=== PATIENT | female | born 2000 | race Caucasian/White ===

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

== ENCOUNTER 2020-05-28 18:16 | Outpatient (REF) | payer MEDICAID, SELFPAY ==
[2020-05-31 18:27] LABS: Patient Race White; SARS-CoV-2 RNA Undetected (Undetected); SARS-CoV-2 Specimen Source Nasal
== END 2020-05-28 18:36 ==
LOC: NCHCN 18:16
PROVIDERS: PCP Family Medicine; Visit Provider Nurse Practitioner Family
DX: Z20.828 Contact with and (suspected) exposure to other viral communicable diseases (principal)
CPT/HCPCS: U0003

== ENCOUNTER 2020-06-04 00:51 | Outpatient (CLI) | payer MEDICAID, SELFPAY ==
--- NOTE | 2020-06-04 07:30 | DI.US_ITS ---
EXAM: US PELVIS TRANSVAGINAL CLINICAL HISTORY: Pelvic pain and abn bleeding on OCPs,CRAMPING,R10.2 TECHNIQUE: Ultrasound performed using standard protocol. COMPARISON: No exams were available for comparison FINDINGS: Pelvic ultrasound was performed transabdominally and transvaginally. Uterus measures 74 x 33 x 42 mi llimeters, endometrial stripe is 5 millimeters in thickness and appears homogeneous. There is small quantity of free fluid in the right adnexal region, possibly physiologic. Right ovary measures 27 x 13 x 14 millimeters. Left ovary measures 28 x 20 x 12 millimeters. Normal vascular flow noted to both ovaries. No ovarian mass. Limited scanning of the kidneys is unremarkable. IMPRESSION: Negative pelvic ultrasound. DATA REPOSITORY:
== END 2020-06-04 01:11 ==
PROVIDERS: PCP Family Medicine; Visit Provider Nurse Practitioner Family
DX: R10.2 Pelvic and perineal pain (principal); N93.9 Abnormal uterine and vaginal bleeding, unspecified
CPT/HCPCS: 76830; 76856

== ENCOUNTER 2021-05-13 14:21 | Outpatient (REF) | payer MEDICAID, SELFPAY ==
[2021-05-13 20:10] LABS: ESR 2 mm/hr (0-20)
[2021-05-13 20:27] LABS: C-Reactive Protein 0.29 mg/dL (0.0-0.3); Uric Acid 3.5 mg/dL (2.6-6.0)
== END 2021-05-13 14:22 | disposition home or self-care (01) ==
LOC: NCHCN 14:21
PROVIDERS: PCP Family Medicine; Visit Provider Family Medicine
DX: M77.42 Metatarsalgia, left foot (principal)
CPT/HCPCS: 85652; 84550; 86140

== ENCOUNTER 2021-05-29 02:16 | Outpatient (CLI) | payer MEDICAID, SELFPAY ==
[2021-05-29 15:11] LABS: ALT 24 U/L (14-59); AST 17 U/L (15-37); Triglyceride 76 mg/dL (<150)
== END 2021-05-29 02:17 | disposition home or self-care (01) ==
LOC: LBO 02:16
PROVIDERS: PCP Family Medicine; Visit Provider Psychiatry & Neurology Neurology
DX: Z79.899 Other long term (current) drug therapy (principal)
CPT/HCPCS: 36415; 84450; 84460; 84478

== ENCOUNTER 2021-07-10 03:31 | Outpatient (CLI) | payer MEDICAID, SELFPAY ==
[2021-07-10 15:40] LABS: ALT 22 U/L (14-59); AST 20 U/L (15-37); Triglyceride 84 mg/dL (<150)
== END 2021-07-10 03:32 | disposition home or self-care (01) ==
LOC: LBO 03:31
PROVIDERS: PCP Family Medicine; Visit Provider Dermatology
DX: L70.0 Acne vulgaris (principal); Z79.899 Other long term (current) drug therapy
CPT/HCPCS: 36415; 84450; 84460; 84478

== ENCOUNTER 2022-11-04 14:31 | Outpatient (REF) | payer MEDICAID, SELFPAY ==
--- NOTE | 2022-11-04 13:20 | PAPFT_PTH ---
PATIENT: Elly Pitts LOC: [facility] U#:[id number] AGE/SX: 21/F ROOM: RE11/04/[address]: Cherry Merida DO : 2000 BED: DIS: 11/04/2022 SPEC #: [id number] RECD: 11/04/22 18:36 STATUS: [facility] REQ #: [id number] IKE: 11/04/22 13:[address]: Cherry Merida DEPT: [facility] Cytology RECD BY: Meagan Pace ENTERED: 11/04/22 18:37 SP TYPE: PAPFT OTHR DR: Tiki Monsalve Tissues: 1 - CX/ENDOCX FOR PAP SMEARS Procedures: PAP THIN PREP/UVM Screening Comments: [id number] (CHLAMYDIA/GC)
[2022-11-05 14:04] LABS: Chlamydia Result Negative (Negative); GC Result Negative (Negative)
== END 2022-11-04 14:32 | disposition home or self-care (01) ==
LOC: LBN 14:31
PROVIDERS: PCP Family Medicine; Visit Provider Obstetrics & Gynecology
DX: Z11.3 Encounter for screening for infections with a predominantly sexual mode of transmission (principal); Z12.4 Encounter for screening for malignant neoplasm of cervix
CPT/HCPCS: 87491; 87591; 88142

== ENCOUNTER 2022-11-05 14:22 | Outpatient (REF) | payer MEDICAID, SELFPAY ==
[2022-11-05 18:31] LABS: HCT 39.2 % (36.0-46.0); HGB 13.5 g/dL (11.2-15.7); MCH 30.2 pg (27.0-33.0); MCHC 34.4 % (32.0-36.0); MCV 88 fL (80-95); MPV 12.2 fL (8.0-11.0); Platelet Count 245 10^3/uL (130-400); RBC 4.47 10^6/uL (3.93-5.22); RDW 12.1 % (11.7-14.6); RDW-SD 39.1 fL; WBC 5.16 10^3/uL (4.4-10.8)
[2022-11-08 10:22] LABS: IgA 295 mg/dL (85-499)
[2022-11-08 20:56] LABS: Tissue Transglutaminase Ab IgA <1.2 U/mL
== END 2022-11-05 14:23 | disposition home or self-care (01) ==
LOC: NCHCN 14:22
PROVIDERS: PCP Family Medicine; Visit Provider Family Medicine
DX: R19.7 Diarrhea, unspecified (principal)
CPT/HCPCS: 82784; 85027; 83516

== ENCOUNTER 2022-11-08 12:00 | Outpatient (REF) | payer MEDICAID, SELFPAY ==
[2022-11-12 17:05] LABS: Calprotectin <50.0 mcg/g
== END 2022-11-08 12:01 | disposition home or self-care (01) ==
LOC: NCHCN 12:00
PROVIDERS: PCP Family Medicine; Visit Provider Family Medicine
DX: R19.7 Diarrhea, unspecified (principal)
CPT/HCPCS: 87329; 83993

== ENCOUNTER 2023-01-31 10:45 | Emergency (ER) | payer MEDICAID, SELFPAY ==
[2023-01-31 10:55] VITALS: BP 127/75; PULSE 87; RESP 16; TEMP 37.1; O2SAT 98
--- NOTE | 2023-01-31 11:15 | DI.CT_ITS ---
Exam(s) CT ABDOMEN PELVIS W EXAM: CT ABDOMEN PELVIS W CLINICAL HISTORY: RLQ pain TECHNIQUE: Imaging Protocol: Axial computed tomography images with coronal and sagittal reformatted images were created and reviewed CONTRAST MATERIAL: Intravenous: Omnipaque 350 Contrast volume:78 mL Oral: No COMPARISON: US US PELVIS TRANSVAGINAL from 06/04/2020 FINDINGS: ABDOMEN: Lung Bases: Normal where visualized. Liver: Normal density. No measurable mass. Portal, Superior Mesenteric, and Splenic Veins: Unremarkable. Gallbladder and Biliary Tract: No radiodense calculus or dilation. Pancreas: Normal density, no abnormal calcifications or inflammatory process. Spleen: Normal. Adrenals: No masses seen. Kidneys: Normal size, contour and axis. No radiodense stones or obstructive uropathy. There is a 7 mm cyst in the right kidney. Abdominal Aorta: Abdominal portion non-dilated. Bowel: No obstruction or bowel wall thickening. The appendix is not distended measuring 4 point 9 mm maximally. There is air seen throughout the appendix with some fluid and high density material. No Leti appendiceal inflammation is seen. Peritoneal Cavity: There is a small amount of fluid seen in the cul-de-sac. No free air. Lymph Nodes: Within normal limits. Bones: Within normal limits for the patient's age. Soft Tissues: Unremarkable. PELVIS: Bladder: Symmetric distention, no gross wall thickening. Reproductive Organs: Unremarkable as visualized. Lymph Nodes: Within normal limits. Bones: Within normal limits for the patient's age. IMPRESSION: 1. The appendix has a normal appearance in size. No Leti appendiceal inflammation is seen. No evidenc e at this time to suggest acute appendicitis. Follow-up as clinically appropriate. This may include a follow-up CT scan of the abdomen and pelvis. 2. The gallbladder is unremarkable. No biliary ductal dilatation. If there is concern for gallbladder pathology, abdominal ultrasound may be obtained. 3. Findings were discussed with Jaja Perez at 12:52 p.m. on 01/31/2023. RADIATION DOSE DELIVERED: 533.72mGy.cm Total DLP DATA REPOSITORY: All CT scans at this facility are submitted to the National Radiology Data Registry (NRDR) Dose Index Registry (DIR) with the [employer] (ACR). RADIATION OPTIMIZATION: All CT scans at this facility use at least one of these dose optimization te chniques: automated exposure control; mA and/or kV adjustment per patient size (includes targeted exa ms where dose is matched to clinical indication); or iterative reconstruction.
--- NOTE | 2023-01-31 11:19 | ED.GENADUL_ITS ---
Discharge Plan Disposition Patient Disposition: Home Condition: Good Discharge Details Clinical Impression: Abdominal pain Primary Care Provider: Tiki Monsalve ED Provider: Jaja Perez Home Meds and New Rx's Prescriptions: New ondansetron 4 mg tablet,disintegrating 4 mg PO TID PRN (Reason: nausea and vomiting) Qty: 10 0RF Continued norgestimate-ethinyl estradiol [Sprintec (28)] 0.25-35 mg-mcg tablet 1 tab PO DAILY Qty: 84 0RF Patient Comments: on another pill Rx Instructions: take one pill daily (DME) Aerochamber MV Spacer See Rx Instructions .Route Qty: 1 0RF Rx Instructions: As directed norethindrone ac-eth estradiol [Junel .01/25 (21)] 1.5-30 mg-mcg tablet 1 tab PO DAILY Qty: 63 4RF Rx Instructions: Take in a continuous fashion. No placebo No Action ibuprofen 200 mg tablet 800 mg PO Q6H PRN acetaminophen [Tylenol Extra Strength] 500 mg tablet 1,000 mg PO Q6H PRN ciprofloxacin HCl 500 mg tablet 500 mg PO BID Qty: 14 0RF Rx Instructions: Take 1 tablet by mouth in the morning, and 1 tablet by mouth in the evening. Discharge Instructions Instructions: Abdominal Pain (ED) Additional Instructions: As we discussed, your imaging and labs are reassuring here today. This may be viral in nature. Please encourage hydration. You may use the Zofran as prescribed to help with any recurrent nausea or vomiting. Please keep your upcoming appoint with your primary care. As we discussed, this could also be gynecologic, you have declined a gynecologic exam here today but I encourage you to discuss this further with your primary care this week or make an appointment with women's wellness if you feel more comfortable. If you develop fever/chills, increased pain, inability stay hydrated or other new/worsening symptom please seek care urgently once again. Referrals: Tiki Monsalve MD [Primary Care Provider] - Discharge Data Discharge Date/Time-TO BE ENTERED AT DEPARTURE: 01/31/23 14:23 Medical Decision Making Patient is a pleasant 22-year-old female, accompanied by her mother, with chief complaint of right-sided abdominal pain. She reports this began last night about 20 minutes after eating a slice of pizza. She has not had pain like this historically. She endorses some nausea but denies any vomiting. Denies any change in bowel habits. Normal bowel movement this morning. Pain does not wrap around to her back. She denies any change in urinary habits, no dysuria or increased frequency. Denies any vaginal discharge. Patient reports that she is on control and does not believe that she is . She is sexually active. No previous abdominal surgeries. Denies any fevers or chills. On exam, patient appears nontoxic. Appears to be resting slightly anxious and uncomfortable. Hemodynamically stable. Exam of her abdomen reveals hypoactive bowel sounds. No guarding. She has pain in the right upper quadrant and does have a positive Blum sign. She also has pain in the right lower quadrant and palpation on the left side does produce some pain over McBurney's point. Pain is elicited McBurney's point but no guarding. Concern for potential appendicitis versus cholecystitis. The abrupt onset after eating pizza as well as the pain in the right upper quadrant certainly has been pointing that way but patient also has another isolated area of pain in the right lower quadrant over McBurney's point. Plan to move forward with CT imaging. She is not having any pain in the pelvis and no vaginal discharge or complaints I have lower suspicion for something like ovarian torsion. She is not describing a sudden onset rather this buildup of discomfort that began initially as a cramping. However, if I am unable to find his we will consider pelvic exam. Will obtain labs. Will obtain UPT. We will treat the patient's nausea and discomfort. UPT negative. Contacted by the radiologist who advised no acute abnormalities noted. In particular, we discussed the appendix, gallbladder and ovaries. Labs are reassuring with no leukocytosis. Stable H&H. No significant abnormality on CMP. Urinalysis appears contaminated. Trace ketones. There is a small amount of leukocyte esterase but again patient's not having any symptoms and it was contaminated. Patient I did discuss these results and I did recommend a vaginal exam and patient declined. She does see women's wellness and prefer to follow-up with them if needed. She again states she not having any discharge or vaginal complaints. She is not having any lower pelvic pain. She also has an appointment with her primary care on Tuesday already scheduled. Return precautions were discussed. We will continue with the Zofran as needed for any recurrent nausea. Mom is also quesitoning endometriosis, they will dsicuss further with women's wellness. All of her questions and concerns were addressed and she is in agreement this plan. Mom is also questioning if this potentially could be associated with HPI General Date/Time Provider Initiated Documentation: 01/31/23 11:19 . Limitations to Documentation: no limitations . Information obtained by: patient, family (mom) and RN notes reviewed . History of Present Illness 22 year old F presents to the emergency department with the chief complaint of right sided abdominal pain, described as severe, with intensity rated at 8. Quality is described as aching, and is localized to the abdomen. Patient reports no radiation. Patient started experiencing this day(s) and it has been constant. No relieving factors improve symptom(s), Eating worsens symptoms (came on after eating pizza) . Patient notes loss of appetite, malaise and nausea/vomiting; denies chest pain, diaphoresis, fever/chills and shortness of breath. Patient did receive the following treatments prior to arrival, none Related Data Home Medications Medication Instructions Recorded Confirmed inhalational spacing device #1 ea 08/03/22 02/02/23 (Aerochamber MV spacer) norethindrone acetate 1.5 1 tab PO DAILY #63 tabs 11/04/22 02/02/23 mg-ethinyl estradiol 30 mcg tablet (Junel) ondansetron 4 mg disintegrating 4 mg PO TID PRN nausea and 01/31/23 02/02/23 tablet vomiting #10 tabs acetaminophen 500 mg tablet 1,000 mg PO Q6H PRN 02/02/23 02/02/23 (Tylenol Extra Strength) ciprofloxacin HCl 500 mg tablet 500 mg PO BID #14 tabs 02/02/23 02/02/23 ibuprofen 200 mg tablet 800 mg PO Q6H PRN 02/02/23 02/02/23 Previous Rx's Medication Instructions Recorded inhalational spacing device #1 ea 08/03/22 (Aerochamber MV spacer) norethindrone acetate 1.5 1 tab PO DAILY #63 tabs 11/04/22 mg-ethinyl estradiol 30 mcg tablet (Junel) ondansetron 4 mg disintegrating 4 mg PO TID PRN nausea and 01/31/23 tablet vomiting #10 tabs ciprofloxacin HCl 500 mg tablet 500 mg PO BID #14 tabs 02/02/23 Allergies Allergy/AdvReac Type Severity Reaction Status Date / Time No Known Allergies Allergy Verified 02/02/23 12:50 General Stated Complaint: Abd Prob CLAU: 3 Review of Systems Constitutional Constitutional: Reports as per HPI, Denies chills, Denies fever(s) and Denies headache(s) ENT Ears, Nose, Mouth, and Throat: Denies headache(s) Cardiovascular Cardiovascular: Reports as per HPI, Denies chest pain and Denies dyspnea Respiratory Respiratory: Reports as per HPI, Denies cough and Denies dyspnea Gastrointestinal Gastrointestinal: Reports as per HPI Musculoskeletal Musculoskeletal: Reports as per HPI and Denies back pain Integumentary/Breasts Skin/Breast: Reports as per HPI and Denies rash Neurologic Neurologic: Reports as per HPI and Denies headache(s) PFSH All Active Problems Pyelonephritis (Acute) Abdominal pain, right lower quadrant (Acute) Endometriosis (Chronic) Menometrorrhagia (Acute) Depression (Chronic) Shoulder pain, left (Acute) Metatarsalgia, left foot (Acute) Chronic diarrhea (Acute) Abdominal pain (Acute) Cyst of right upper eyelid (Acute 11/05/16) Colitis (Acute) hospitalized x 2 days Contraception (Acute 06/10/16) Medical History Acne Cyst of right upper eyelid Surgical History Cyst removal R UPPER EYE LID Family History Mother Asthma Father Anxiety Depression Grandparent Essential hypertension MGM & PGM Depression Heart disease Hyperlipidemia Hypothyroidism MGM Neoplasm PGM- lung CA Subdural hemorrhage MGM Thrombocytopenia MGF Uveitis MGF- eye surgery young age Sister Anxiety Depression Social History Smoking/Tobacco Use Status: Never Smoking risk assessment performed?: Yes Alcohol Intake: current Substance use type: does not use Additional Social history: lives w/ mother older sister in area Female Reproductive History Menstrual control method: pills History History 0 Para Hx # Term Pregnancies Multiple births Hx # Pregnancies Ectopic pregnancies AB induced Hx Number of Living Children AB spontaneous Exam Const General: cooperative, healthy appearing, comfortable, no acute distress and well developed Nutritional Appearance: average body habitus and well nourished Orientation: alert and awake [facility] Head: normal to inspection Mouth: moist mucous membranes Resp Effort & Inspection: normal respiratory effort, able to speak in complete sentences and no respiratory distress Auscultation: clear to auscultation bilaterally, no rales, no rhonchi and no wheezes Cardio Rate: regular rate Rhythm: regular rhythm Heart Sounds: S1 normal and S2 normal GI Inspection: normal to inspection Palpation: soft, no hepatosplenomegaly, no hernias, no masses, not rigid, tender in the RLQ, in the RUQ, at McBurney's point and Blum's sign positive; not periumbilically, psoas sign negative and with no rebound tenderness and No ascites Percussion: normal to percussion Back/Spine/Pelvis Back: no CVA tenderness Skin General skin exam: no rashes or lesions noted Trauma: no lacerations or abrasions Neuro General: patient alert and patient awake Cognition: normal cognition Speech: speech normal Gait: normal gait Psych Appearance: grossly normal and well kempt Mental Status: mental status grossly normal Speech and Movement: speech and movement normal Course Vital Signs Vital signs: Vital Signs Temperature 37.1 C 01/31/23 10:55 Pulse 87 01/31/23 10:55 Respiratory Rate 16 01/31/23 10:55 Blood Pressure 127/75 01/31/23 10:55 Pulse Oximetry 98 01/31/23 10:55 Temperature 37.1 C 01/31/23 10:55 Temperature Source Skin 01/31/23 10:55 Pulse 87 01/31/23 10:55 Respiratory Rate 16 01/31/23 10:55 Blood Pressure 127/75 01/31/23 10:55 Blood Pressure Position Sitting 01/31/23 10:55 Pulse Oximetry 98 01/31/23 10:55 Oxygen Delivery Method Room Air 01/31/23 10:55 Oxygen Flow Rate 0 01/31/23 10:55 Pain Level 8 01/31/23 10:55
[2023-01-31 11:32] LABS: Abs Immature Grans 0.03 10^3/uL (0.0-0.06); Absolute Basophil Count 0.03 10^3/uL (0.0-0.2); Absolute Eosinophil Count 0.02 10^3/uL (0.0-0.7); Absolute Lymphocyte Count 1.08 10^3/uL (1.2-3.4); Absolute Monocyte Count 0.58 10^3/uL (0.1-0.8); Absolute Neutrophil Count 8.96 10^3/uL (1.2-6.7); Basophils % 0.3; Eosinophils % 0.2; Immature Grans % 0.3; Lymphocytes % 10.1; MCH 30.6 pg (27.0-33.0); MCHC 34.1 % (32.0-36.0); MCV 90 fL (80-95); Monocytes % 5.4; Neutrophils % 83.7; Platelet Count 248 10^3/uL (130-400); RDW-SD 39.8 fL
--- NOTE | 2023-01-31 11:42 | NUR.NOTE ---
Nursing Note: Accessed pt No. Counties chart to see if a UPT was done at the visit today. None documented.
[2023-01-31 11:51] LABS: ALT 20 U/L (14-59); AST 19 U/L (15-37); Albumin 4.2 g/dL (3.4-5.0); Alkaline Phosphatase 102 U/L (46-116); Anion Gap 6.9 mmol/L (3-11); BUN 8 mg/dL (7-18); Bilirubin, Total 0.8 mg/dL (0.2-1.0); CO2 28.1 mmol/L (21.0-32.0); Calcium 9.2 mg/dL (8.5-10.1); Chloride 102 mmol/L (98-107); Estimated GFR 81.69 (mL/min/1.73m2); Glucose 85 mg/dL (74-106); Potassium 3.4 mmol/L (3.5-5.1); Sodium 137 mmol/L (136-145); Total Protein 8.4 g/dL (6.4-8.2)
[2023-01-31] MEDS: Ondansetron 4 MG/2 ML VIAL IVP (11:54)
[2023-01-31] MEDS: Normal Saline 1,000 ML 1000 ML IV (11:54)
[2023-01-31] MEDS: ACETAMINOPHEN 1,000 MG/100 ML BTL 400 MG IVPB (11:54)
[2023-01-31] MEDS: MORPHine 4 MG/ML SYR IVP (11:55)
[2023-01-31 11:59] LABS: Bilirubin Negative (Negative); Blood Trace-intact (Negative); Clarity Clear (Clear); Glucose Negative (Negative); Ketones Trace mg/dL (Negative); Leukocyte Esterase Small (Negative); Nitrite Negative (Negative); Urobilinogen 0.2 mg/dL (Up to 0.2)
[2023-01-31] MEDS: Omnipaque 350 MG/ML 100 ML BTL IJ (12:07)
[2023-01-31] MEDS: Normal Saline - Diluent 50 ML VIAL IJ (12:08)
[2023-01-31 12:13] LABS: Bacteria Rare HPF (Negative); C & S Indicated? No/Sq. Contamination; Casts Negative LPF (Negative); Crystals Negative HPF (Negative); Epithelial Cells Moderate HPF (Negative); Mucus Negative (Negative); Other Cells Few Transitional (Negative); RBC 0-2 HPF (0-2)
== END 2023-01-31 14:23 | disposition home or self-care (01) ==
PROVIDERS: Emergency Provider Physician Assistant; PCP Family Medicine
DX: R10.31 Right lower quadrant pain (principal)
CPT/HCPCS: 36415; 80053; 81025; 96361; 96365; 96375; 99285; 74177; 81003; 81015; 85025; 99284; J0131; J2270; J2405; J3490

== ENCOUNTER 2023-01-31 15:33 | Outpatient (REF) | payer MEDICAID, SELFPAY | END 2023-01-31 15:34 | disposition home or self-care (01) | LOC: NCHCN 15:33 | PROVIDERS: PCP Family Medicine; Visit Provider Nurse Practitioner Family | DX: R10.31 Right lower quadrant pain (principal) | CPT/HCPCS: 87077; 87086; 87186 ==

== ENCOUNTER 2023-02-02 13:02 | Outpatient (REF) | payer MEDICAID, SELFPAY ==
[2023-02-02 13:36] LABS: Bilirubin Negative (Negative); Blood Trace-lysed (Negative); Clarity Clear (Clear); Glucose Negative (Negative); Ketones 15 mg/dL (Negative); Leukocyte Esterase Small (Negative); Nitrite Negative (Negative); Specific Gravity <= 1.005 (1.005-1.025); Urobilinogen 0.2 mg/dL (Up to 0.2); pH 5.5 (5-8)
[2023-02-02 13:48] LABS: Bacteria Moderate HPF (Negative); C & S Indicated? C&S Done As Ordered; Casts Negative LPF (Negative); Crystals Negative HPF (Negative); Epithelial Cells Many HPF (Negative); Mucus Negative (Negative)
== END 2023-02-02 13:03 | disposition home or self-care (01) ==
LOC: LBN 13:02
PROVIDERS: PCP Family Medicine; Visit Provider Surgery
DX: N12 Tubulo-interstitial nephritis, not specified as acute or chronic (principal); R82.998 Other abnormal findings in urine
CPT/HCPCS: 87077; 81003; 81015; 87086; 87186

== ENCOUNTER 2023-02-02 13:17 | Outpatient (CLI) | payer MEDICAID, SELFPAY ==
--- NOTE | 2023-02-02 | DI.CT_ITS ---
Exam(s) CT ABDOMEN PELVIS W EXAM: CT ABDOMEN PELVIS W CLINICAL HISTORY: RLQ ABD PAIN R10.31 TECHNIQUE: Imaging Protocol: Axial computed tomography images with coronal and sagittal reformatted images were created and reviewed CONTRAST MATERIAL: Intravenous: Omnipaque 350 Contrast volume:80 mL Oral: Yes COMPARISON: CT CT ABDOMEN PELVIS W from 01/31/2023 FINDINGS: ABDOMEN: Lung Bases: Normal where visualized. Liver: Normal density. No measurable mass. Portal, Superior Mesenteric, and Splenic Veins: Unremarkable. Gallbladder and Biliary Tract: No radiodense calculus or dilation. Pancreas: Normal density, no abnormal calcifications or inflammatory process. Spleen: Normal. Adrenals: No masses seen. Kidneys: Normal size, contour and axis. No radiodense stones or obstructive uropathy. Stable right re nal cysts. No follow-up is recommended. There is mild stranding around the right kidney. Abdominal Aorta: Abdominal portion non-dilated. Bowel: No obstruction or bowel wall thickening. The appendix measures 4 mm in diameter. There is air and contrast seen within the appendix. No findings to suggest acute appendicitis. Peritoneal Cavity: There is a trace amount of fluid in the pelvis/cul-de-sac which may be physiologic . No free air. Lymph Nodes: Within normal limits. Bones: Within normal limits for the patient's age. Soft Tissues: Unremarkable. PELVIS: Bladder: There is diffuse thickening of the wall of the urinary bladder. The urinary bladder is unde rdistended. Reproductive Organs: Unremarkable as visualized. Lymph Nodes: Within normal limits. Bones: Within normal limits for the patient's age. IMPRESSION: 1. Normal appendix. 2. Mild stranding around the right kidney. Please correlate with clinical history for any concern fo r pyelonephritis. 3. Thickening of the wall of the urinary bladder. This may be due to underdistention but cystitis ca nnot be excluded. RADIATION DOSE DELIVERED: 525.73mGy.cm Total DLP DATA REPOSITORY: All CT scans at this facility are submitted to the National Radiology Data Registry (NRDR) Dose Index Registry (DIR) with the [employer] (A[employer]). RADIATION OPTIMIZATION: All CT scans at this facility use at least one of these dose optimization te chniques: automated exposure control; mA and/or kV adjustment per patient size (includes targeted exa ms where dose is matched to clinical indication); or iterative reconstruction.
[2023-02-02] MEDS: Barium Sulfate 2% W/V-Berry Smoothie 450 ML BTL PO (10:01)
[2023-02-02] MEDS: Omnipaque 350 MG/ML 500 ML BTL-Imaging package IJ (11:41)
[2023-02-02] MEDS: Normal Saline - Diluent 50 ML VIAL IJ (11:42)
== END 2023-02-02 13:37 ==
LOC: DI 13:17
PROVIDERS: PCP Family Medicine; Visit Provider Family Medicine
DX: N28.89 Other specified disorders of kidney and ureter (principal); N32.89 Other specified disorders of bladder; R10.31 Right lower quadrant pain
CPT/HCPCS: 74177

== ENCOUNTER 2023-08-30 17:27 | Outpatient (REF) | payer MEDICAID, SELFPAY | END 2023-08-30 17:28 | disposition home or self-care (01) | LOC: NCHCN 17:27 | PROVIDERS: PCP Family Medicine; Visit Provider Physician Assistant | DX: R30.0 Dysuria (principal); R82.998 Other abnormal findings in urine | CPT/HCPCS: 87077; 87086; 87186 ==

== ENCOUNTER 2024-08-03 14:05 | Outpatient (REF) | payer SELFPAY ==
[2024-08-03 16:40] LABS: FREE T4 0.84 ng/dL (0.76-1.46); TSH 0.67 uIU/mL (0.36-3.74)
[2024-08-03 23:34] LABS: HIV-1/2 Ag & Ab Screen Negative (Negative)
[2024-08-03 23:38] LABS: Hepatitis C Ab w Rflx HCV PCR Negative (Negative)
[2024-08-06 12:34] LABS: Chlamydia Result Negative (Negative); GC Result Negative (Negative)
== END 2024-08-03 14:06 | disposition home or self-care (01) ==
LOC: NCHCN 14:05
PROVIDERS: PCP Family Medicine; Visit Provider Family Medicine
DX: Z11.8 Encounter for screening for other infectious and parasitic diseases (principal); R63.4 Abnormal weight loss; Z11.59 Encounter for screening for other viral diseases; Z11.4 Encounter for screening for human immunodeficiency virus [HIV]
CPT/HCPCS: 86803; 87389; 87491; 87591; 84439; 84443

== ENCOUNTER 2024-09-07 00:18 | Outpatient (CLI) | payer BC, SELFPAY ==
--- NOTE | 2024-09-07 12:35 | DI.RAD_ITS ---
Exam(s) XR LUMBAR SPINE COMPLETE EXAM: XR LUMBAR SPINE COMPLETE CLINICAL HISTORY: LBP, M54.50. TECHNIQUE: 2D digital imaging was performed of the lumbar spine. Five images were obtained. AP, la teral, right oblique, left oblique and L5-S1 spot views were obtained. COMPARISON: CT CT ABDOMEN PELVIS W from 02/02/2023 FINDINGS: BONES: No fracture or destructive lesion. Vertebral bodies are unremarkable. No facet hypertrophy becca ntified. There is a hypoplastic right 12th rib. DISKS: Intervertebral disc spaces are maintained. ALIGNMENT: Lumbar spinal alignment is within normal limits. No spondylolysis or spondylolisthesis. SOFT TISSUE: Normal. IMPRESSION: Unremarkable radiographs of the lumbar spine. DATA REPOSITORY: RADIATION DOSE DELIVERED:
== END 2024-09-07 00:38 ==
PROVIDERS: PCP Family Medicine; Visit Provider Family Medicine
DX: M54.50 Low back pain, unspecified (principal)
CPT/HCPCS: 72110

== ENCOUNTER 2024-12-17 17:57 | Outpatient (REF) | payer BC, SELFPAY ==
[2024-12-18 14:20] LABS: Chlamydia Result Negative (Negative); GC Result Negative (Negative)
== END 2024-12-17 17:58 | disposition home or self-care (01) ==
LOC: LBN 17:57
PROVIDERS: PCP Family Medicine; Visit Provider Obstetrics & Gynecology
DX: Z01.419 Encounter for gynecological examination (general) (routine) without abnormal findings (principal); Z11.3 Encounter for screening for infections with a predominantly sexual mode of transmission
CPT/HCPCS: 87491; 87591

== ENCOUNTER 2025-06-27 14:10 | Outpatient (CLI) | payer BC, SELFPAY ==
[2025-06-27 14:45] LABS: ALT 19 U/L (14-59)
== END 2025-06-27 14:11 | disposition home or self-care (01) ==
LOC: LBO 14:12
PROVIDERS: PCP Family Medicine; Visit Provider Student in an Organized Health Care Education/Training Program
DX: Z79.899 Other long term (current) drug therapy (principal)
CPT/HCPCS: 36415; 84460; 84478